=== PATIENT | male | born 1980 | race Caucasian/White ===

== ENCOUNTER 2019-03-19 13:25 | Outpatient (RCR) | payer OTHER | END 2019-03-25 09:14 | disposition home or self-care (01) | LOC: WSOH 13:25 | DX: S83.232D Complex tear of medial meniscus, current injury, left knee, subsequent encounter (principal); W18.49XA Other slipping, tripping and stumbling without falling, initial encounter; Y99.0 Civilian activity done for income or pay; F17.210 Nicotine dependence, cigarettes, uncomplicated; Z98.1 Arthrodesis status ==